=== PATIENT | male | born 1955 ===

== ENCOUNTER → 2023-02-20 | Outpatient (CLI) | payer MEDICARE, OTHER ==
[~2023-02-20] VITALS: Ht 162.6 cm; Wt 86.0 kg
[~2023-02-20] MED LIST: CLON0.1T2 PO; EZET10TA57 PO; LOSA-382 PO; MELO-381 PO
[2023-02-20 11:49] VITALS: BP 114/58; PULSE 71; RESP 17; TEMP 99.1; O2SAT 97
== END | disposition home or self-care (01) ==
LOC: SRCNTR 11:29
PROVIDERS: ATTEND Internal Medicine Pulmonary Disease
DX: G47.33 Obstructive sleep apnea (adult) (pediatric) (principal); I10 Essential (primary) hypertension; E78.5 Hyperlipidemia, unspecified; M54.50 Low back pain, unspecified; G89.29 Other chronic pain
CPT/HCPCS: G0463; Z7500

== ENCOUNTER → 2023-03-22 | Outpatient (CLI) | payer MEDICARE, OTHER | END | disposition home or self-care (01) | LOC: SRCNTR 12:27 | PROVIDERS: ATTEND Internal Medicine Pulmonary Disease | DX: G47.33 Obstructive sleep apnea (adult) (pediatric) (principal); I10 Essential (primary) hypertension; E78.5 Hyperlipidemia, unspecified; G89.29 Other chronic pain; Z82.49 Family history of ischemic heart disease and other diseases of the circulatory system; Z88.2 Allergy status to sulfonamides; Z88.8 Allergy status to other drugs, medicaments and biological substances; Z79.899 Other long term (current) drug therapy | CPT/HCPCS: G0463; Z7500 ==

== ENCOUNTER → 2023-03-28 | Outpatient (CLI) | payer MEDICARE, OTHER ==
[~2023-03-28] VITALS: Ht 162.6 cm; Wt 83.5 kg
[2023-03-28 10:56] VITALS: BP 142/85; PULSE 70; RESP 20; TEMP 97.8; O2SAT 95
== END | disposition home or self-care (01) ==
LOC: SRCNTR 10:03
PROVIDERS: ATTEND Internal Medicine Pulmonary Disease
DX: G47.33 Obstructive sleep apnea (adult) (pediatric) (principal); I10 Essential (primary) hypertension; E78.5 Hyperlipidemia, unspecified; G89.29 Other chronic pain; Z79.899 Other long term (current) drug therapy; Z88.2 Allergy status to sulfonamides; Z88.8 Allergy status to other drugs, medicaments and biological substances
CPT/HCPCS: G0463; Z7500

== ENCOUNTER → 2023-06-29 | Outpatient (CLI) | payer MEDICARE, OTHER ==
[~2023-06-29] VITALS: Ht 162.6 cm; Wt 83.0 kg
[~2023-06-29] MED LIST changes: +ZOLP-280 PO
[2023-06-29 11:55] VITALS: BP 117/54; PULSE 72; RESP 16; TEMP 98.2; O2SAT 97
== END | disposition home or self-care (01) ==
LOC: SRCNTR 11:38
PROVIDERS: ATTEND Internal Medicine Pulmonary Disease
DX: G47.33 Obstructive sleep apnea (adult) (pediatric) (principal); I10 Essential (primary) hypertension; E78.5 Hyperlipidemia, unspecified; M54.50 Low back pain, unspecified; G89.29 Other chronic pain
CPT/HCPCS: G0463

== ENCOUNTER → 2023-06-30 | Outpatient (CLI) | payer MEDICARE, OTHER ==
[2023-06-30 09:05] VITALS: BP 123/66; PULSE 66; RESP 18; TEMP 98.1; O2SAT 96
== END | disposition home or self-care (01) ==
LOC: SRCNTR 08:40
PROVIDERS: ATTEND Internal Medicine Pulmonary Disease
DX: G47.33 Obstructive sleep apnea (adult) (pediatric) (principal)
CPT/HCPCS: G0463

== ENCOUNTER → 2023-08-01 | Outpatient (CLI) | payer MEDICARE, OTHER ==
[~2023-08-01] VITALS: Ht 162.6 cm; Wt 86.0 kg
[~2023-08-01] MED LIST changes: -CLON0.1T2 PO; -MELO-381 PO
[2023-08-01 12:05] VITALS: BP 122/55; PULSE 70; RESP 16; TEMP 98.4; O2SAT 97
== END | disposition home or self-care (01) ==
LOC: SRCNTR 11:53
PROVIDERS: ATTEND Internal Medicine Pulmonary Disease
DX: G47.33 Obstructive sleep apnea (adult) (pediatric) (principal); I10 Essential (primary) hypertension; E78.5 Hyperlipidemia, unspecified; M54.50 Low back pain, unspecified; G89.4 Chronic pain syndrome
CPT/HCPCS: G0463; Z7500

== ENCOUNTER → 2024-04-02 | Outpatient (CLI) | payer MEDICARE, OTHER ==
[~2024-04-02] VITALS: Ht 162.6 cm; Wt 85.0 kg
[2024-04-02 12:20] VITALS: BP 126/84; PULSE 78; RESP 18; TEMP 98; O2SAT 98
== END | disposition home or self-care (01) ==
LOC: SRCNTR 12:03
PROVIDERS: ATTEND Internal Medicine Pulmonary Disease
DX: G47.33 Obstructive sleep apnea (adult) (pediatric) (principal); I10 Essential (primary) hypertension; E78.5 Hyperlipidemia, unspecified; M54.9 Dorsalgia, unspecified; G89.29 Other chronic pain; Z79.899 Other long term (current) drug therapy; Z88.2 Allergy status to sulfonamides; Z88.8 Allergy status to other drugs, medicaments and biological substances; Z98.890 Other specified postprocedural states
CPT/HCPCS: G0463

== ENCOUNTER → 2024-08-08 | Outpatient (CLI) | payer MEDICARE, OTHER ==
[~2024-08-08] VITALS: Ht 162.6 cm; Wt 87.0 kg
[~2024-08-08] MED LIST changes: +ZOLP-162 PO
[2024-08-08 10:27] VITALS: BP 134/81; PULSE 72; RESP 21; TEMP 98.5; O2SAT 96
== END | disposition home or self-care (01) ==
LOC: SRCNTR 10:06
PROVIDERS: ATTEND Internal Medicine Pulmonary Disease
DX: G47.33 Obstructive sleep apnea (adult) (pediatric) (principal); I10 Essential (primary) hypertension; E78.5 Hyperlipidemia, unspecified; G89.4 Chronic pain syndrome; Z79.899 Other long term (current) drug therapy; Z82.49 Family history of ischemic heart disease and other diseases of the circulatory system; Z88.2 Allergy status to sulfonamides; Z96.653 Presence of artificial knee joint, bilateral
CPT/HCPCS: G0463; Z7500